=== PATIENT | female | born 1960 | race American Indian/Alaskan Native ===

== ENCOUNTER 2016-09-03 12:00 | Emergency (ER) | payer SELFPAY ==
--- NOTE | 2016-09-03 12:44 | Emergency Department Report ---
Chief Complaint: Nosebleed Stated Complaint: NOSE BLEED Time Seen by Provider: 09/03/16 12:41 - HPI History of Present Illness: 56 y/o female with complaint of nose bleeding prior to come to er .pt state she was told 5 years ago that she had hypertension .pt state she has not taking medication in over 4-5years.pt complain of headache feeling like pressure .pt denies any n/v at present .pt state she take aleve on daily for sciatica . - ROS Review of Systems: per HPI - Exam Vital Signs: Vital Signs 09/03/16 12:23 Temperature 97.9 F Pulse Rate 90 Blood Pressure 188/124 O2 Sat by Pulse 99 Oximetry Physical Exam: GENERAL: The patient is well-developed and well-nourished. Patient is in NAD. HENT: Normocephalic. Atraumatic. Patient has moist mucous membranes. Throat: No erythema, swelling or exudates. EYES: Extraocular motions are intact, PERRL NECK: Supple. No meningitic signs are noted. There is no adenopathy noted. CHEST/LUNGS: Clear to auscultation bilaterally. No wheezing, rales or rhonchi noted. There is no respiratory distress noted. HEART/CARDIOVASCULAR: Regular rate and rhythm. Normal S1 S2. No murmurs, rubs , clicks, or gallops. ABDOMEN: Abdomen is soft, nontender.. Bowel sounds normoactive. There is no abdominal distention. Negative rebound tenderness. : Deferred. SKIN: There is no rash. There is no edema. There is no diaphoresis. NEURO: The patient is A&Ox3. The patient has no focal neurologic deficits. MUSCULOSKELETAL: There is no tenderness or deformity. There is no limitation range of motion. PSYCH: Pt has appropriate mood and affect. MSE screening note: Focused history and physical exam performed. Due to findings the following was ordered: ED Disposition for MSE Condition: Stable
[2016-09-03 13:14] LABS: Basophils % (Auto) 0.9 % (0.0-1.8); Eosinophils % (Auto) 1.5 % (0.0-4.3); Hematocrit 39.3 % (30.3-42.9); Hemoglobin 13.1 gm/dl (10.1-14.3); Mean Corpuscular HGB Conc 33 % (30-34); Mean Corpuscular Hemoglobin 30 pg (28-32); Mean Corpuscular Volume 90 fl (79-97); Platelet Count 323 K/mm3 (140-440); Red Blood Count 4.36 M/mm3 (3.65-5.03); Red Cell Distribution Width 13.3 % (13.2-15.2); White Blood Count 9.2 K/mm3 (4.5-11.0)
[2016-09-03 13:15] LABS: Bilirubin,Urine NEG (Negative); Blood,Urine MOD (Negative); Ketones,Urine TR mg/dL (Negative); Leukocyte Esterase,Urine LG (Negative); Nitrite,Urine NEG (Negative); Protein,Urine <15 mg/dL mg/dL (Negative); RBC,Urine < 1.0 /HPF (0.0-6.0); Urobilinogen,Urine < 2.0 mg/dL (<2.0)
[2016-09-03 13:24] LABS: Partial Thromboplastin Time 28.1 Sec. (24.2-36.6)
[2016-09-03 13:26] LABS: Anion Gap 18 mmol/L; BUN/Creatinine Ratio 31.25; Blood Urea Nitrogen 25 mg/dL (7-17); Calcium 8.2 mg/dL (8.4-10.2); Carbon Dioxide 27 mmol/L (22-30); Chloride 104.5 mmol/L (98-107); Glucose 94 mg/dL (65-100); Potassium 4.1 mmol/L (3.6-5.0); Sodium 145 mmol/L (137-145)
[2016-09-03 14:36] VITALS: BP 158/108
--- NOTE | 2016-09-03 14:41 | Emergency Department Report ---
HPI - General Chief Complaint: Nosebleed Time Seen by Provider: 09/03/16 14:27 - HPI HPI: Chief complaint: Epistaxis HPI: Patient states she's been having a nosebleed intermittently for the last 2 days. Currently not bleeding. Patient states she has not taken any blood pressure medication for 5 years. Patient does not go to the doctor. Patient does not have any headache or chest pain. Mode of arrival: [private car] Source: [Patient] Began: 2 days ago Duration: Intermittent Context: No previous nosebleeds Quality: Pain-free Severity: 0 out of 10 Improved with: Holding pressure to her nose Worsened with: Nothing Associated signs and symptoms: See above ED Past Medical Hx - Past Medical History Hx Arthritis: Yes - Social History Smoking Status: Never Smoker Substance Use Type: None - Medications Home Medications: Home Medications Medication Instructions Recorded Confirmed Last Taken Type Naproxen Sodium [Aleve TAB] 1 tab PO DAILY 09/03/16 09/03/16 Unknown History amLODIPine [Norvasc] 5 mg PO DAILY #30 tab 09/03/16 Unknown Rx ED Review of Systems ROS: Stated complaint: NOSE BLEED Other details as noted in HPI ROS Constitutional: No fever ENT: No uri symptoms Cardiovascular: No chest pain Respiratory: No sob or cough GI: No nausea vomiting or diarrhea : No dysuria frequency or urgency, Skin: No rash Neuro: No focal weakness or numbness Psych: No depression Niraj/lymph: No edema Physical Exam - Physical Exam Vital Signs: Vital Signs 09/03/16 12:23 Temperature 97.9 F Pulse Rate 90 Blood Pressure 188/124 O2 Sat by Pulse 99 Oximetry Physical Exam: GENERAL: The patient is well-developed well-nourished . HEENT: Normocephalic. Atraumatic. Extraocular motions are intact. Patient has moist mucous membranes. Clotted blood in left nares. No post pharyngeal bleeding. NECK: Supple. No meningitic signs are noted. There is no adenopathy noted. CHEST/LUNGS: Clear to auscultation. There is no respiratory distress noted. HEART/CARDIOVASCULAR: Regular. There is no tachycardia. There is no gallop rub or murmur. ABDOMEN: Abdomen is soft, nontender. Patient has normal bowel sounds. There is no abdominal distention. SKIN: There is no rash. There is no edema. There is no diaphoresis. NEURO: The patient is awake, alert, and oriented. The patient is cooperative. The patient has no focal neurologic deficits. The patient has normal speech. MUSCULOSKELETAL: There is no tenderness or deformity. There is no limitation range of motion. There is no evidence of acute injury. ED Course Vital Signs 09/03/16 12:23 Temperature 97.9 F Pulse Rate 90 Blood Pressure 188/124 O2 Sat by Pulse 99 Oximetry ED Medical Decision Making - Lab Data Result diagrams: 09/03/16 13:00 09/03/16 13:00 Laboratory Tests 09/03/16 09/03/16 09/03/16 13:00 13:00 13:01 PT 13.1 INR 1.00 APTT 28.1 Calcium 8.2 L Urine Turbidity Cloudy Urine pH 5.0 Ur Specific [place] 1.025 Urine Protein <15 mg/dl Urine Ketones Tr Ur Leukocyte Esterase Lg Urine WBC (Auto) 1.0 Urine RBC (Auto) < 1.0 Critical care attestation.: If time is entered above; I have spent that time in minutes in the direct care of this critically ill patient, excluding procedure time. ED Disposition Clinical Impression: Epistaxis, Essential hypertension Disposition: DISCHARGED TO HOME OR SELFCARE Is pt being admited?: No Does the pt Need Aspirin: No Condition: Stable Instructions: Hypertension (ED), Epistaxis (ED) Prescriptions: amLODIPine [Norvasc] 5 mg PO DAILY #30 tab Referrals: PRIMARY CAREMD [Primary Care Provider] - 3-5 Days [facility] [Provider Group] - 3-5 Days CONNER ALONZO MD [Staff Physician] - 3-5 Days (Dr. Alonzo is an ear nose and throat doctor.) Time of Disposition: 14:44
== END 2016-09-03 15:06 | disposition home or self-care (01) ==
LOC: ED 12:00
DX: R04.0 Epistaxis (principal); I10 Essential (primary) hypertension; M19.90 Unspecified osteoarthritis, unspecified site
CPT/HCPCS: 36415; 80048; 81001; 85025; 85610; 85730; 99283

== ENCOUNTER 2021-10-05 22:44 | Emergency (ER) | payer SELFPAY ==
[2021-10-05 23:06] VITALS: BP 159/111
[2021-10-06] MEDS ORDERED: OXYMETAZOLINE 0.05% NASAL SPRAY NS ONE (00:06)
[2021-10-06] MEDS ORDERED: hydrALAZINE 25 MG TAB PO ONE (00:06)
--- NOTE | 2021-10-06 00:50 | Emergency Department Report ---
ED General Adult HPI - General Chief complaint: Nosebleed Stated complaint: NOSE BLEEDING BLOOD PRESSURE Time Seen by Provider: 10/06/21 00:06 Source: patient Mode of arrival: Ambulatory Limitations: No Limitations - History of Present Illness Initial comments: Patient 61-year-old -[place] female with history of hypertension who presents for epistaxis since early this a.m. States blood from both nostrils however primarily left at this time. Patient denies fevers or chills there is no lightheadedness no dizziness there is some nausea and vomiting. He denies chest pain or shortness of breath. Patient denies fall injury or trauma. Patient drove self to ED patient is alert oriented x3 amatory with steady gait. Patient has had nosebleeds in the past related to hypertension. Patient not currently taking BP meds as ordered. Current BP is 159/111. Symptoms are exacerbated by blowing nose. Symptoms are relieved by nothing tried. Severity scale (0 -10): 0 - Related Data Home Medications Medication Instructions Recorded Confirmed Last Taken Naproxen Sodium [Aleve TAB] 1 tab PO DAILY 09/03/16 09/03/16 Unknown Previous Rx's Medication Instructions Recorded Last Taken Type amLODIPine [Norvasc] 5 mg PO DAILY #30 tab 09/03/16 Unknown Rx Oxymetazoline 0.05% [Vicks Sinex] 2 spray NS Q5MIN PRN #1 bottle 10/06/21 Unknown Rx amLODIPine 5 mg PO DAILY #30 tab 10/06/21 Unknown Rx Allergies Allergy/AdvReac Type Severity Reaction Status Date / Time No Known Allergies Allergy Unverified 04/07/15 12:15 ED Review of Systems ROS: Stated complaint: NOSE BLEEDING BLOOD PRESSURE Other details as noted in HPI Constitutional: denies: chills, fever Eyes: denies: eye pain, eye discharge, vision change ENT: epistaxis Respiratory: denies: cough, shortness of breath, wheezing Cardiovascular: denies: chest pain, palpitations Endocrine: no symptoms reported Gastrointestinal: nausea. denies: abdominal pain, vomiting, diarrhea, hematemesis, melena, hematochezia Genitourinary: denies: urgency, dysuria, discharge Musculoskeletal: denies: back pain, joint swelling, arthralgia Skin: denies: rash, lesions Neurological: denies: headache, weakness, paresthesias, vertigo Psychiatric: denies: anxiety, depression Hematological/Lymphatic: denies: easy bleeding, easy bruising ED Past Medical Hx - Past Medical History Previous Medical History?: Yes Hx Hypertension: Yes Hx Arthritis: Yes - Social History Smoking Status: Never Smoker Substance Use Type: None - Medications Home Medications: Home Medications Medication Instructions Recorded Confirmed Last Taken Type Naproxen Sodium [Aleve TAB] 1 tab PO DAILY 09/03/16 09/03/16 Unknown History amLODIPine [Norvasc] 5 mg PO DAILY #30 tab 09/03/16 Unknown Rx Oxymetazoline 0.05% [Vicks Sinex] 2 spray NS Q5MIN PRN #1 bottle 10/06/21 Unknown Rx amLODIPine 5 mg PO DAILY #30 tab 10/06/21 Unknown Rx ED Physical Exam - General Limitations: No Limitations General appearance: alert, in no apparent distress - Head Head exam: Present: normocephalic, normal inspection - Eye Eye exam: Present: PERRL, EOMI Pupils: Present: normal accommodation - ENT ENT exam: Present: mucous membranes moist, TM's normal bilaterally, normal external ear exam - Expanded ENT Exam Expanded Mouth exam: Present: other (airway patent no swelling uvula midline, postnasal bloody drainage , Nare: right pateint, left with swelling moderate epistaxis anterior ) Throat exam: Negative: tonsillar erythema, tonsillomegaly, tonsillar exudate - Neck Neck exam: Present: normal inspection, full ROM. Absent: tenderness, lymphadenopathy - Respiratory Respiratory exam: Present: normal lung sounds bilaterally. Absent: wheezes, stridor, chest wall tenderness - Cardiovascular Cardiovascular Exam: Present: regular rate, normal rhythm, normal heart sounds. Absent: systolic murmur, diastolic murmur, rubs, gallop - GI/Abdominal GI/Abdominal exam: Present: soft, normal bowel sounds. Absent: distended, tenderness - Rectal Rectal exam: Present: deferred - Extremities Exam Extremities exam: Present: normal inspection, full ROM, normal capillary refill. Absent: tenderness - Back Exam Back exam: Present: normal inspection, full ROM - Neurological Exam Neurological exam: Present: alert, oriented X3, CN II-XII intact, normal gait. Absent: motor sensory deficit - Expanded Neurological Exam Expanded Patient oriented to: Present: person, place, time Motor strength exam: RUE: 5, LUE: 5, RLE: 5, LLE: 5 Best Eye Response ([place]): (4) open spontaneously Best Motor Response ([place]): (6) obeys commands Best Verbal Response ([place]): (5) oriented [place] Total: 15 - Psychiatric Psychiatric exam: Present: normal affect - Skin Skin exam: Present: warm, dry, intact, normal color. Absent: rash ED Course Vital Signs 10/05/21 23:05 Temperature 98.5 F Pulse Rate 95 H Respiratory 20 Rate Blood Pressure 159/111 [Right] O2 Sat by Pulse 97 Oximetry - Procedure Description Procedures done: epistaxis L Nare, applied Afrin nasal spray and 4x4 guaze with direct pressure x 5 minutes, nose bleed controlled, nares patent bilat, pt tolerated procedure with minimal distress. to home with Afrin [place] guaze. will follow up with ENT in am. ED Medical Decision Making - Medical Decision Making Epistaxis controlled with Afrin nasal spray and gauze packing. All bleeding is controlled at this time nares are patent airway is patent there is no shortness of breath no nausea no vomiting, BP is improved. Plan DC to home with prescriptions. Amlodipine p.o. daily, Afrin nasal spray as needed. Patient given nosebleed management teaching. Patient verbalized and demonstrated proper technique for same. Patient DC'd home in stable condition at 1 time Critical care attestation.: If time is entered above; I have spent that time in minutes in the direct care of this critically ill patient, excluding procedure time. ED Disposition Clinical Impression: Epistaxis Disposition: 01 HOME / SELF CARE / HOMELESS Is pt being admited?: No Does the pt Need Aspirin: No Condition: Stable Instructions: Nosebleed, Adult, Nosebleed, [id number] Additional Instructions: Take medications as prescribed, follow-up with your doctor in 2 to 3 days. Return to emergency department should symptoms worsen. Prescriptions: Oxymetazoline 0.05% [Vicks Sinex] 2 spray NS Q5MIN PRN #1 bottle PRN Reason: nose bleed amLODIPine 5 mg PO DAILY #30 tab Referrals: RADHA KNIGHT MD [Staff Physician] - 3-5 Days JON LY MD [Staff Physician] - 24 Hours Forms: Work/School Release Form(ED) Time of Disposition: 01:00
[2021-10-06 00:53] LABS: Hematocrit 40.4 % (30.3-42.9); Hemoglobin 12.8 gm/dl (10.1-14.3); Mean Corpuscular HGB Conc 32 % (30-34); Mean Corpuscular Volume 90 fl (79-97); Platelet Count 346 K/mm3 (140-440); Red Blood Count 4.51 M/mm3 (3.65-5.03); Red Cell Distribution Width 13.9 % (13.2-15.2)
[2021-10-06 01:04] LABS: Alanine Aminotransferase 5 units/L (7-56); BUN/Creatinine Ratio 32; Blood Urea Nitrogen 35 mg/dL (7-17); Calcium 8.6 mg/dL (8.4-10.2)
[2021-10-06 01:05] LABS: Albumin 3.8 g/dL (3.9-5); Hemolysis Index 1
== END 2021-10-06 02:23 | disposition home or self-care (01) ==
LOC: ED 22:44
DX: R04.0 Epistaxis (principal); I10 Essential (primary) hypertension
CPT/HCPCS: 36415; 80053; 85027; 99283